=== PATIENT | female | born 1975 | race Caucasian/White ===

== ENCOUNTER 2016-06-20 00:18 | Emergency (ER) | payer MEDICAID ==
[~2016-06-20] VITALS: Ht 154.9 cm; Wt 72.1 kg
[~2016-06-20 00:18] MED LIST: PREN1TAB49 PO
[2016-06-20 00:41] VITALS: Ht 154.9 cm; Wt 72.1 kg
[2016-06-20] MEDS ORDERED: HYDROCODONE/APAP (5/325) TAB PO ONE (02:00)
--- NOTE | 2016-06-20 02:15 | ERD ---
ER Documentation Chief Complaint Date/Time DATE: 06/20/16 TIME: 02:13 Chief Complaint Left Flank pain HPI There is a 40-year-old female who presents to the emergency department today complaining of pain with urination and right-sided flank pain for the past 2 days.States she took Tylenol at 6:30 PM. Patient states she has had some body aches but no fevers or nausea or vomiting. ROS All systems reviewed and are negative except as per history of present illness. Medications Home Meds Active Scripts Hydrocodone/Acetaminophen (Norborne 5-325 Tablet) 1 Each Tablet, 1 TAB PO Q6H Y for PAIN, #10 TAB Prov:ESTEBAN HOOK PA-C 06/20/16 Naproxen* (Naprosyn*) 500 Mg Tablet, 500 MG PO BID Y for PAIN AND/OR INFLAMMATION, #30 TAB Prov:ESTEBAN HOOK PA-C 06/20/16 Cephalexin* (Keflex*) 500 Mg Capsule, 500 MG PO QID for 7 Days, CAP Prov:ESTEBAN HOOK PA-C 06/20/16 Reported Medications Vits W-Ca,Fe,Fa(<1MG) () 1 Tab Tablet, 1 TAB PO DAILY 12/14/11 Allergies Allergies: Coded Allergies: No Known Allergy (Unverified , 12/14/11) PMhx/Soc Medical and Surgical Hx: pt denies Medical Hx, pt denies Surgical Hx History of Surgery: Yes (C section x3) Anesthesia Reaction: No Hx Neurological Disorder: No Hx Respiratory Disorders: No Hx Cardiac Disorders: No Hx Psychiatric Problems: No Hx Miscellaneous Medical Probl: No Hx Alcohol Use: No Hx Substance Use: No Hx Tobacco Use: No Smoking Status: Never smoker Physical Exam Vitals Vital Signs Date Time Temp Pulse Resp B/P Pulse Ox O2 Delivery O2 Flow Rate FiO2 06/20/16 00:41 96.8 70 18 125/62 100 Physical Exam Const: No acute distress Head: Atraumatic Eyes: Normal Conjunctiva ENT: Normal External Ears, Nose and Mouth. Neck: Full range of motion..~ No meningismus. Resp: Clear to auscultation bilaterally Cardio: Regular rate and rhythm, no murmurs Abd: Soft, suprapubic tenderness non distended. Normal bowel sounds. No right lower quadrant pain. No tenderness to McBurney's. No left lower quadrant pain. Skin: No petechiae or rashes Back: Right-sided flank tenderness. No CVA tenderness. Neur: Awake and alert Psych: Normal Mood and Affect Result Diagram: 06/20/1621806/20/16 0219 Results 24 hrs Laboratory Tests Test 06/20/16 02:19 06/20/16 02:30 Alanine Aminotransferase (ALT/SGPT) 26IU/L Albumin 4.1g/dl Albumin/Globulin Ratio 1.32 Alkaline Phosphatase 112IU/L Anion Gap 16 Aspartate Amino Transf (AST/SGOT) 24IU/L Basophils # 0.110^3/ul Basophils % 0.5% Blood Urea Nitrogen 16mg/dl Calcium Level 9.4mg/dl Carbon Dioxide Level 30mmol/L Chloride Level 102mmol/L Creatinine 0.67mg/dl Direct Bilirubin 0.00mg/dl Eosinophils # 0.210^3/ul Eosinophils % 2.2% Globulin 3.10g/dl Glucose Level 97mg/dl Hematocrit 36.9% Hemoglobin 12.7g/dl Indirect Bilirubin 0.4mg/dl Lymphocytes # 2.810^3/ul Lymphocytes % 28.4% Mean Corpuscular Hemoglobin 29.7pg Mean Corpuscular Hemoglobin Concent 34.4g/dl Mean Corpuscular Volume 86.5fl Mean Platelet Volume 8.5fl Monocytes # 0.510^3/ul Monocytes % 4.5% Neutrophils # 6.410^3/ul Neutrophils % 64.4% Nucleated Red Blood Cells # 0.010^3/ul Nucleated Red Blood Cells % 0.0/100WBC Platelet Count 35213^3/UL Potassium Level 3.9mmol/L Red Blood Count 4.2610^6/ul Red Cell Distribution Width 13.1% Sodium Level 144mmol/L Total Bilirubin 0.4mg/dl Total Protein 7.2g/dl Urine Bacteria FEW Urine Bilirubin NEGATIVE Urine Clarity CLEAR Urine Color LT. YELLOW Urine Glucose NEGATIVE% Urine Hemoglobin 1+ Urine Ketones NEGATIVE Urine Leukocyte Esterase 1+ Urine Microscopic RBC 2-5/HPF Urine Microscopic WBC 5-10/HPF Urine Nitrite NEGATIVE Urine Specific [place] 1.010 Urine Squamous Epithelial Cells FEW Urine Total Protein NEGATIVE Urine Urobilinogen 0.2 E.U./dL Urine pH 7.0 White Blood Count 10.010^3/ul Bedside Urine Blood 1+ Bedside Urine Glucose (UA) Negative Bedside Urine Ketones (LAB) Negative Bedside Urine Leukocyte Esterase (L 1+ Bedside Urine Nitrite (LAB) Negative Bedside Urine Protein (LAB) Negative Bedside Urine pH (LAB) 7.0 Current Medications Medications (Trade) Dose Ordered Sig/Kimo Route PRN Reason Start Time Stop Time Status Last Admin Dose Admin Acetaminophen/ Hydrocodone Bitart (Norborne (5/325)) 1 tab ONCE ONCE PO 06/20/16 02:00 06/20/16 02:01 DC 06/20/16 02:24 Procedures/MDM This is a 40-year-old female who presents to the emergency department today complaining of dysuria and right-sided flank pain. I did obtain laboratory work as well as a UA Laboratory work shows no elevated white blood cell count. She is not anemic. Platelets are within normal limits. Electrolytes are within normal limits. Glucose is within normal limits. Liver functions within normal limits. UA shows 1+ leukocyte esterase. 1+ blood. Negative nitrites and 5-10 white blood cells. Patient will be treated with Keflex for a urinary tract infection. I have low suspicion for pyelonephritis however I cannot rule out nephrolithiasis given the 1+ blood in the patient's urine. Prior to discharge patient notified me that she has been seeing an outside hospital approximately 2 months ago with similar complaints and was treated for urinary tract infection. Given this information I then sent the urine for culture. Urine test is negative. Low suspicion for ectopic , tubo- ovarian abscess, ovarian torsion. Patient has no right lower quadrant pain in the left lower quadrant pain of low suspicion for any acute surgical abdomen. She is afebrile and otherwise well-appearing. I do not feel that she requires further workup or imaging at this time. Patient was given Norborne here in the emergency department and pain improved. Patient will be given a prescription for a short course of Norborne, Naprosyn and Keflex. At this time the patient is stable for discharge and outpatient management. Patient should follow up with their PCP in the next 1-2 days. They may return to the emergency department sooner for any persistent or worsening of symptoms. Patient understood and agreed with the plan. I discussed the patient with Dr. Franklin and he is in agreement with the plan. Departure Diagnosis: Primary Impression: UTI (urinary tract infection) Urinary tract infection type: site unspecified Hematuria presence: with hematuria Qualified Code: N39.0 - Urinary tract infection with hematuria, site unspecified Additional Impression: Flank pain Condition: Fair ESTEBAN HOOK PA-C Jun 20, 2016 02:15
[2016-06-20 02:28] LABS: URINE BLOOD (Dip) POC 1+ (NEGATIVE)
[2016-06-20 02:56] LABS: BASOPHIL # 0.1 10^3/ul (0.0-0.1); BASOPHILS % 0.5 % (0.0-2.0); EOSINOPHILS # 0.2 10^3/ul (0.0-0.5); EOSINOPHILS % 2.2 % (0.0-7.0); HEMATOCRIT 36.9 % (37.0-47.0); HEMOGLOBIN 12.7 g/dl (12.0-16.0); LYMPHOCYTES # 2.8 10^3/ul (0.8-2.9); LYMPHOCYTES % 28.4 % (15.0-51.0); MEAN CORPUSCULAR HEMOGLOBIN 29.7 pg (29.0-33.0); MEAN CORPUSCULAR HGB CONC 34.4 g/dl (32.0-37.0); MEAN CORPUSCULAR VOLUME 86.5 fl (82.0-101.0); MEAN PLATELET VOLUME 8.5 fl (7.4-10.4); MONOCYTE # 0.5 10^3/ul (0.3-0.9); MONOCYTES % 4.5 % (0.0-11.0); NEUTROPHIL # 6.4 10^3/ul (1.6-7.5); NEUTROPHILS % 64.4 % (39.0-77.0); PLATELET COUNT 207 10^3/UL (140-440); RED BLOOD COUNT 4.26 10^6/ul (4.20-5.40); RED CELL DISTRIBUTION WIDTH 13.1 % (11.5-14.5)
[2016-06-20 03:04] LABS: CONDITION 1
[2016-06-20 03:14] LABS: ADD UMIC YES; URINE BILIRUBIN (Dip) NEGATIVE (NEGATIVE); URINE BLOOD (Dip) 1+ (NEGATIVE); URINE COLOR LT. YELLOW (YELLOW); URINE GLUCOSE (Dip) NEGATIVE (NEGATIVE); URINE KETONES (Dip) NEGATIVE (NEGATIVE); URINE LEUKOCYTE ESTERASE (Dip) 1+ (NEGATIVE); URINE NITRITE (Dip) NEGATIVE (NEGATIVE); URINE TOTAL PROTEIN (Dip) NEGATIVE (NEGATIVE); URINE UROBILINOGEN (Dip) 0.2 E.U./dL (0.1-1.0)
[2016-06-20 03:16] LABS: ALBUMIN 4.1 g/dl (3.3-4.9)
[2016-06-20 03:17] LABS: POTASSIUM 3.9 mmol/L (3.5-5.1)
[2016-06-20 03:19] LABS: BILIRUBIN,INDIRECT 0.4 mg/dl (0-1.1); BILIRUBIN,TOTAL 0.4 mg/dl (0.2-1.3); CREATININE 0.67 mg/dl (0.44-1.00); TOTAL PROTEIN 7.2 g/dl (6.1-8.1)
[2016-06-20 03:20] LABS: ALBUMIN/GLOBULIN RATIO 1.32; CALCIUM 9.4 mg/dl (8.4-10.2)
[2016-06-20 03:34] LABS: BACTERIA,URINE FEW; SQUAMOUS EPITHELIAL CELL,UR FEW
[2016-06-20] MEDS ORDERED: NAPR-260 PO (04:08)
[2016-06-20] MEDS ORDERED: CEPH-443 PO (04:08)
[2016-06-20] MEDS ORDERED: HYDR-906 PO (04:09)
[2016-06-20 04:24] VITALS: BP 118/70; PULSE 78; RESP 18; TEMP 98.3
== END 2016-06-20 04:25 | disposition home or self-care (01) ==
LOC: FTE 00:18
DX: N39.0 Urinary tract infection, site not specified (principal)
CPT/HCPCS: 80053; 81001; 81003; 85025; 87086; Z7610; 36415; 99284

== ENCOUNTER 2017-05-25 22:14 | Emergency (ER) | END 2017-05-26 05:07 | disposition home or self-care (01) ==